=== PATIENT | male | born 1970 | race Two or more races ===

== ENCOUNTER 2023-07-27 17:26 | Emergency (ER) | payer OTHER ==
[~2023-07-27] VITALS: Ht 172.7 cm; Wt 80.0 kg
[2023-07-27 17:30] VITALS: O2SAT 98
[2023-07-27] MEDS ORDERED: MORPHINE SULFATE 4 MG/ML CPJ (NOT FOR IM USE) IV ONE (19:45)
[2023-07-27] MEDS ORDERED: LEVOFLOXACIN 500MG PREMIX 100 ML IV ONE (19:45)
[2023-07-27] MEDS ORDERED: VANCOMYCIN 1G PREMIX 200 ML IV SCH (19:45)
[2023-07-27] MEDS ORDERED: SODIUM CHLORIDE 0.9% 1000ML BAG (SEPSIS BOLUS) IV ONE (19:45)
[2023-07-27] MEDS ORDERED: ONDANSETRON HCL 4MG/2ML INJ IV ONE (19:45)
[2023-07-27] MEDS ORDERED: HYDROCODONE/ACETAMINOPHEN 7.5/325MG TABLET PO ONE (21:00)
[2023-07-27 21:03] LABS: BASOPHILS % 0.4 % (0.0-2.0); EOSINOPHILS % 1.9 % (0.0-5.0); HEMATOCRIT. 27.2 % (42.0-52.0); HEMOGLOBIN. 9.2 g/dL (14.0-18.0); LYMPHOCYTES % 18.3 % (20.0-50.0); MEAN CORPUSCULAR HGB CONC 33.7 g/dL (31.0-37.0); MEAN PLATELET VOLUME 8.8 fl (7.4-10.4); MONOCYTES % 7.3 % (2.0-8.0); NEUTROPHILS % 72.1 % (40.0-76.0); PLATELET 384 x1000/uL (130-400); RED BLOOD CELL COUNT 2.95 mill/uL (4.7-6.1); WHITE BLOOD COUNT 8.3 x1000/uL (4.5-11.0)
[2023-07-27 21:05] LABS: INR 1.1; PROTHROMBIN TIME 11.4 sec (9.6-11.0)
[2023-07-27 21:15] LABS: ALANINE AMINOTRANSFERASE 24 IU/L (10-49); ALBUMIN 3.3 g/dL (3.2-4.8); ASPARTATE AMINOTRANSFERASE 23 IU/L (<34); BILIRUBIN TOTAL 0.3 mg/dL (0.1-1.0); CALCIUM 8.6 mg/dL (8.7-10.4); CARBON DIOXIDE 28 mEq/L (21-32); CHLORIDE 99 mEq/L (98-107); CREATININE 0.9 mg/dL (0.6-1.3); GLUCOSE 359 mg/dL (70-105); POTASSIUM 4.3 mEq/L (3.5-5.1); PROTEIN TOTAL 7.3 g/dL (6.0-8.3); SODIUM 133 mEq/L (136-145); UREA NITROGEN BLOOD 16 mg/dL (9-23)
[2023-07-27] MEDS ORDERED: LEVOFLOXACIN 500MG PREMIX 100 ML IV NR (23:30)
[2023-07-27] MEDS ORDERED: VANCOMYCIN 1G PREMIX 200 ML IV NR (23:30)
[2023-07-27] MEDS ORDERED: ONDANSETRON HCL 4MG/2ML INJ IV NR (23:45)
[2023-07-27] MEDS ORDERED: HYDROCODONE/ACETAMINOPHEN 7.5/325MG TABLET PO NR (23:45)
[2023-07-28 00:38] VITALS: BP 127/82; PULSE 93; RESP 20; TEMP 98.3
== END 2023-07-27 20:28 | disposition short-term general hospital (02) ==
LOC: ER 17:26
DX: E11.621 Type 2 diabetes mellitus with foot ulcer (principal); E78.00 Pure hypercholesterolemia, unspecified; Z98.890 Other specified postprocedural states
CPT/HCPCS: 80053; 82962; 83605; 85025; 85610; 87040; 87186; 87077; 36415; 84145; 93922; 71045; 93970; 93005; 96365; 99285; J1956; Z7610; J7030